=== PATIENT | female | born 1980 | race Caucasian/White ===

== ENCOUNTER 2019-07-08 13:01 | Outpatient (CLI) | payer BC ==
[2019-07-08] VITALS (11 sets, daily range): BP systolic 99–123; BP diastolic 52–82; PULSE 72–85
[~2019-07-08] VITALS: Ht 152.4 cm; Wt 82.8 kg
--- NOTE | 2019-07-08 14:15 | NUR ---
Transfer from Radiology by cart. Mckenna to back CD&I. VSS. Family bedside
[2019-07-08 16:05] LABS: GLUCOSE,CSF 69 mg/dL (40-70); TOTAL PROTEIN,CSF 34 mg/dL (15-45)
[2019-07-08 16:13] LABS: CSF APPEARANCE CLEAR; CSF COLOR COLORLESS; CSF RBC 0 /mm3 (0-0)
--- NOTE | 2019-07-08 16:16 | NUR ---
Discharge instructions given. Transferred to private car by cathy
[2019-07-08 17:33] LABS: CSF MONONUCLEAR 100 % (70-100); CSF POLYMORPHONUCLEAR 0 % (0-6)
[2019-07-11 13:03] LABS: ALBUMIN CSF 18.6 mg/dL (<=27.0)
[2019-07-11 13:09] LABS: IGG/ALBUMIN SERUM 0.28 (<=0.40)
[2019-07-11 13:26] LABS: CSF IGG/ALBUMIN 0.12 (<=0.21); CSF,IGG 2.3 mg/dL (<=8.1); CSF-IGG INDEX 0.43 (<=0.85)
== END 2019-07-08 16:16 | disposition home or self-care (01) ==
LOC: COL.RAD 13:01
PROVIDERS: Psychiatry & Neurology Neurology; Radiology Diagnostic Radiology
DX: G37.9 Demyelinating disease of central nervous system, unspecified (principal)